=== PATIENT | male | born 1935 | race Caucasian/White ===

== ENCOUNTER 2016-12-19 12:54 | Emergency (ER) | payer BC ==
[2016-12-19 13:07] VITALS: TEMP 99.7; BMI 28.1
[2016-12-19] MEDS ORDERED: ONDANSETRON 4 MG/2 ML VIAL IVPUSH ONE ×2 (13:28→19:16)
[2016-12-19] MEDS ORDERED: SODIUM CHLORIDE 1,000 ML IV STA (13:28)
[2016-12-19] MEDS ORDERED: morphine CARPU-JECT 4 MG/1 ML DISP.SYRIN IVPUSH ONE ×2 (13:28→14:44)
[2016-12-19] MEDS ORDERED: morphine CARPU-JECT 4 MG/1 ML DISP.SYRIN ONE ×2 (13:45→14:47)
[2016-12-19] MEDS ORDERED: ONDANSETRON 4 MG/2 ML VIAL ONE ×2 (13:45→20:06)
[2016-12-19 13:58] LABS: BASOPHIL 0.2 % (0-2.0); EOSINOPHIL 0.1 % (0-4.5); MCH 28.4 pg (25.7-33.7); MCHC 33.4 g/dl (32.0-35.9); MEAN CELL VOLUME 85.2 fl (80-96); MEAN PLT VOLUME 6.9 fl (7.5-11.1); NEUTROPHILS 87.7 % (42.8-82.8); PLATELET COUNT 202 K/MM3 (134-434); RDW 13.7 % (11.9-15.9); WHITE BLOOD COUNT 12.9 K/mm3 (4.0-10.0)
[2016-12-19 14:20] LABS: ALBUMIN 3.8 g/dl (3.4-5.0); BILIRUBIN,TOTAL 1.7 mg/dL (0.2-1.0); CALCIUM 9.1 mg/dL (8.5-10.1); COCKROFT - GAULT 46.11; CREATININE 1.5 mg/dL (0.7-1.3); TOT PROT 6.9 g/dl (6.4-8.2)
--- NOTE | 2016-12-19 14:44 | PDOC ---
History of Present Illness - General History Source: Patient Exam Limitations: No Limitations - History of Present Illness Initial Comments: 12/19/16 14:48 The patient is a 81 year old male, with a significant past medical history of HTN (metropolol) and HLD (Lisinopril), who presents to the emergency department with abdominal pain, nausea and vomit for the past 3 days. He describes his abdominal pain as localized in the lower abdominal region, which he describes as a pressure like sensation, without radiation. He notes that the pain is intermittent in nature. He denies any modifying factors. He states that he has been passing mild air and has been burping much. He reports that his last bowel movement was dark and loose. 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 He notes that he developed a low heart rate 10 years ago when he had a colonoscopy. The patient denies chest pain, shortness of breath, headache and dizziness. Denies fever, chills, diarrhea and constipation. Denies dysuria, frequency, urgency and hematuria. Allergies: None Past surgical history: None reported Social history: No alcohol, tobacco or drug use reported GI: Dr. No <Rik Novoa - Last Filed: 12/19/16 14:47> - General History Source: Patient Exam Limitations: No Limitations <Angelina Sanchez - Last Filed: 12/20/16 08:19> - General Chief Complaint: Pain Stated Complaint: ABDOMINAL PAIN Time Seen by Provider: 12/19/16 12:59 Past History <Rik Novoa - Last Filed: 12/19/16 14:47> - Past Medical History Cardiac Disorders: Yes (tachycardia) Hypercholesterolemia: Yes - Psycho/Social/Smoking Cessation Hx Anxiety: No Suicidal Ideation: No Smoking History: Former smoker Have you smoked in the past 12 months: No Information on smoking cessation initiated: No Hx Alcohol Use: No Drug/Substance Use Hx: No Substance Use Type: None <Angelina Sanchez - Last Filed: 12/20/16 08:19> - Past Medical History Allergies/Adverse Reactions: Allergies Allergy/AdvReac Type Severity Reaction Status Date / Time No Known Allergies Allergy Verified 12/19/16 12:58 Home Medications: Ambulatory Orders Ketorolac Tromethamine [Toradol] 10 mg PO Q6H PRN #8 tablet MDD 4 12/19/16 Metoprolol Tartrate [Lopressor -] 0 mg PO HS 12/19/16 Nitrofurantoin Monohyd/M-Cryst [Macrobid -] 100 mg PO BID #14 capsule 12/19/16 Ondansetron [Zofran Odt -] 4 mg SL TID PRN #6 od.tablet 12/19/16 Oxycodone HCl/Acetaminophen [Percocet 5-325 mg Tablet] 1 tab PO Q6H PRN #4 tablet MDD 4 12/19/16 Pravastatin Sodium [Pravachol (Nf)] 20 mg PO HS 12/19/16 Tamsulosin HCl [Flomax] 0.4 mg PO DAILY #7 capsule 12/19/16 Review of Systems - Review of Systems Able to Perform ROS?: Yes Comments:: 12/19/16 14:48 GENERAL/CONSTITUTIONAL: No fever or chills. No weakness. HEAD, EYES, EARS, NOSE AND THROAT: No change in vision. No ear pain or discharge. No sore throat. CARDIOVASCULAR: No chest pain or shortness of breath RESPIRATORY: No cough, wheezing, or hemoptysis. GASTROINTESTINAL: (+) Abdominal pain, nausea, vomiting. No diarrhea or constipation. GENITOURINARY: No dysuria, frequency, or change in urination. MUSCULOSKELETAL: No joint or muscle swelling or pain. No neck or back pain. SKIN: No rash NEUROLOGIC: No headache, vertigo, loss of consciousness, or change in strength/ sensation. ENDOCRINE: No increased thirst. No abnormal weight change HEMATOLOGIC/LYMPHATIC: No anemia, easy bleeding, or history of blood clots. ALLERGIC/IMMUNOLOGIC: No hives or skin allergy. <Rik Novoa - Last Filed: 12/19/16 14:47> *Physical Exam - Vital Signs Last Vital Signs Temp Pulse Resp BP Pulse Ox 99.7 F H 77 20 142/76 96 12/19/16 13:04 12/19/16 13:04 12/19/16 13:04 12/19/16 13:04 12/19/16 13:04 - Physical Exam Comments: 12/19/16 14:47 GENERAL: Awake, alert, and fully oriented, in no acute distress HEAD: No signs of trauma, normocephalic, atraumatic EYES: PERRLA, EOMI, sclera anicteric, conjunctiva clear ENT: Auricles normal inspection, hearing grossly normal, nares patent, oropharynx clear without exudates. Moist mucosa NECK: Normal ROM, supple, no lymphadenopathy, JVD, or masses LUNGS: No distress, speaks full sentences, clear to auscultation bilaterally HEART: Regular rate and rhythm, normal S1 and S2, no murmurs, rubs or gallops, peripheral pulses normal and equal bilaterally. ABDOMEN: Soft, nontender, normoactive bowel sounds. No guarding, no rebound. No masses EXTREMITIES: Normal inspection, Normal range of motion, no edema. No clubbing or cyanosis. NEUROLOGICAL: Cranial nerves II through XII grossly intact. Normal speech, normal gait, no focal sensorimotor deficits SKIN: Warm, Dry, normal turgor, no rashes or lesions noted. <Rik Novoa - Last Filed: 12/19/16 14:47> - Vital Signs Last Vital Signs Temp Pulse Resp BP Pulse Ox 99.7 F H 77 20 142/76 96 12/19/16 13:04 12/19/16 13:04 12/19/16 13:04 12/19/16 13:04 12/19/16 13:04 <Angelina Sanchez - Last Filed: 12/20/16 08:19> ED Treatment Course - LABORATORY CBC & Chemistry Diagram: 12/19/16 13:34 12/19/16 13:34 - ADDITIONAL ORDERS Additional order review: Laboratory Results 12/19/16 12/19/16 13:34 13:34 Sodium 141 Potassium 4.2 Chloride 103 Carbon Dioxide 27 Anion Gap 11 BUN 16 Creatinine 1.5 H Creat Clearance w eGFR 45.14 Random Glucose 120 H Calcium 9.1 Total Bilirubin 1.7 H AST 14 L ALT 21 Alkaline Phosphatase 70 Total Protein 6.9 Albumin 3.8 Total Amylase 39 Lipase 58 L Stool Occult Blood Negative 12/19/16 13:34 RBC 4.76 MCV 85.2 MCHC 33.4 RDW 13.7 MPV 6.9 L Neutrophils % 87.7 H Lymphocytes % 6.5 L Monocytes % 5.5 Eosinophils % 0.1 Basophils % 0.2 - Medications Given in the ED: ED Medications Discontinued Medications Generic Name Dose Route Start Last Admin Trade Name Freq PRN Reason Stop Dose Admin Morphine Sulfate 4 mg 12/19/16 13:28 12/19/16 13:54 Morphine Injection - IVPUSH 12/19/16 13:29 4 mg ONCE ONE Administration Ondansetron HCl 4 mg 12/19/16 13:28 12/19/16 13:54 Zofran Injection IVPUSH 12/19/16 13:29 4 mg ONCE ONE Administration <Rik Novoa - Last Filed: 12/19/16 14:47> - LABORATORY CBC & Chemistry Diagram: 12/19/16 13:34 12/19/16 13:34 - ADDITIONAL ORDERS Additional order review: Laboratory Results 12/19/16 12/19/16 13:34 13:34 Sodium 141 Potassium 4.2 Chloride 103 Carbon Dioxide 27 Anion Gap 11 BUN 16 Creatinine 1.5 H Creat Clearance w eGFR 45.14 Random Glucose 120 H Calcium 9.1 Total Bilirubin 1.7 H AST 14 L ALT 21 Alkaline Phosphatase 70 Total Protein 6.9 Albumin 3.8 Total Amylase 39 Lipase 58 L Stool Occult Blood Negative 12/19/16 13:34 RBC 4.76 MCV 85.2 MCHC 33.4 RDW 13.7 MPV 6.9 L Neutrophils % 87.7 H Lymphocytes % 6.5 L Monocytes % 5.5 Eosinophils % 0.1 Basophils % 0.2 - RADIOLOGY Radiology Studies Ordered: Category Date Time Status ABDOMEN & PELVIS CT WITH CONTR [CT] Stat CT Scan 12/19/16 13:25 Ordered - Medications Given in the ED: ED Medications Discontinued Medications Generic Name Dose Route Start Last Admin Trade Name Freq PRN Reason Stop Dose Admin Morphine Sulfate 4 mg 12/19/16 13:28 12/19/16 13:54 Morphine Injection - IVPUSH 12/19/16 13:29 4 mg ONCE ONE Administration Ondansetron HCl 4 mg 12/19/16 13:28 12/19/16 13:54 Zofran Injection IVPUSH 12/19/16 13:29 4 mg ONCE ONE Administration <Angelina Sanchez - Last Filed: 12/20/16 08:19> Medical Decision Making - Medical Decision Making 12/19/16 14:44 A portion of this note was documented by scribe services under my direction. I have reviewed the details of the note, within reason, and agree with the documentation with the following case summary and management plan written by me. Nursing documentation reviewed and incorporated into medical decision making This patient is a 81-year-old male with a history of diabetes and hypertension who presents emergency department with a complaint of right lower quadrant pain for approximately 3 days. Patient states his symptoms have been associated with nausea, vomiting, inability to tolerate by mouth. Yesterday in the middle of the day he had a large dark bowel movement. Since then he's had small amounts of flatus. He has noted no fevers, no chills. No abdominal surgery DD: Appendicitis, colitis, enteritis, Kidney stone, gastroenteritis, obstruction , gastritis, diverticulitis 12/19/16 15:28 Laboratory Tests 12/19/16 12/19/16 13:34 13:34 WBC 12.9 H Hgb 13.5 Hct 40.6 Plt Count 202 Sodium 141 Potassium 4.2 Chloride 103 Carbon Dioxide 27 BUN 16 Creatinine 1.5 H Random Glucose 120 H Total Bilirubin 1.7 H 12/19/16 16:[address] of the abdomen and pelvis Pt signed out to Dr Asencio <Angelina Sanchez - Last Filed: 12/20/16 08:19> *DC/Admit/Observation/Transfer - Attestations Scribe Attestion: 12/19/16 14:47 Documentation prepared by Rik Novoa, acting as medical director occupational health for Angelina Sanchez MD <Rik Novoa - Last Filed: 12/19/16 14:47> <Angelina Sanchez - Last Filed: 12/20/16 08:19> Diagnosis at time of Disposition: Urinary tract infectious disease - Discharge Dispostion Disposition: HOME - Prescriptions Prescriptions: Tamsulosin HCl [Flomax] 0.4 mg PO DAILY #7 capsule Nitrofurantoin Monohyd/M-Cryst [Macrobid -] 100 mg PO BID #14 capsule Oxycodone HCl/Acetaminophen [Percocet 5-325 mg Tablet] 1 tab PO Q6H PRN #4 tablet MDD 4 PRN Reason: Severe Pain Ketorolac Tromethamine [Toradol] 10 mg PO Q6H PRN #8 tablet MDD 4 PRN Reason: Pain Ondansetron [Zofran Odt -] 4 mg SL TID PRN #6 od.tablet PRN Reason: Nausea And/Or Vomiting - Referrals Referrals: Froylan Santo MD [Primary Care Provider] -
[2016-12-19 16:06] LABS: URINE APPEARANCE SLCLOUDY; URINE BILIRUBIN NEGATIVE (NEGATIVE); URINE COLOR YELLOW; URINE GLUCOSE (UA) NEGATIVE (NEGATIVE); URINE KETONE TRACE (NEGATIVE); URINE LEUK ESTERASE NEGATIVE (NEGATIVE); URINE NITRITE NEGATIVE (NEGATIVE); URINE UROBILINOGEN NEGATIVE E.U./dl (0.2-1.0)
[2016-12-19 16:09] LABS: URINE BLOOD 3+ (NEGATIVE); URINE PROTEIN 1+ (NEGATIVE)
[2016-12-19 16:10] LABS: URINE MUCUS RARE; URINE RBC 289 /hpf (0-3); URINE WBC 18 /hpf (3-5)
[2016-12-19 18:12] VITALS: BP 119/74; PULSE 81
[2016-12-19] MEDS ORDERED: TAMSULOSIN HCL 0.4 MG CAP.ER.24H (FP) PO ONE (18:40)
[2016-12-19] MEDS ORDERED: NITROFURANTOIN MACROCRYSTAL 50 MG CAPSULE (FP) PO SCH (18:45)
[2016-12-19] MEDS ORDERED: KETOROLAC TROMETHAMINE 30 MG/1 ML VIAL IVPUSH ONE (19:15)
[2016-12-19] MEDS ORDERED: KETOROLAC TROMETHAMINE 30 MG/1 ML VIAL ONE (19:18)
[2016-12-19] MEDS ORDERED: TAMSULOSIN HCL 0.4 MG CAP.ER.24H (FP) ONE (19:18)
[2016-12-19] MEDS ORDERED: NITROFURANTOIN MACROCRYSTAL 50 MG CAPSULE (FP) ONE (19:18)
== END 2016-12-19 20:23 | disposition home or self-care (01) ==
LOC: SUPCPDRO 12:54 → JER 12:54
PROC: 3E0333Z Introduction of Anti-inflammatory into Peripheral Vein, Percutaneous Approach (ICD-10-PCS; principal; 2016-12-19)
PROC: 3E033NZ Introduction of Analgesics, Hypnotics, Sedatives into Peripheral Vein, Percutaneous Approach (ICD-10-PCS; 2016-12-19)
PROC: 3E033GC Introduction of Other Therapeutic Substance into Peripheral Vein, Percutaneous Approach (ICD-10-PCS; 2016-12-19)
PROC: 3E0337Z Introduction of Electrolytic and Water Balance Substance into Peripheral Vein, Percutaneous Approach (ICD-10-PCS; 2016-12-19)
DX: N39.0 Urinary tract infection, site not specified (principal); I10 Essential (primary) hypertension; E78.5 Hyperlipidemia, unspecified; Z87.891 Personal history of nicotine dependence
CPT/HCPCS: 36415; 74176-TC; 80053; 81003; 81015; 82150; 82272; 83690; 85025; 87086; 96361; 96374; 96375; 96376; 99283-25; Q9967

== ENCOUNTER 2019-02-25 02:36 | Emergency (ER) | payer BC ==
--- NOTE | 2019-02-25 02:57 | PDOC ---
Attending Attestation - Resident Resident Name: Savi Benitez - ED Attending Attestation I have performed the following: I have examined & evaluated the patient, The case was reviewed & discussed with the resident, I agree w/resident's findings & plan - HPI HPI: 02/25/19 06:13 83-year-old male complaining of left lower quadrant pain, at its worst 8-9 out of 10 in intensity. There is no associated fever. - Physicial Exam PE: 02/25/19 06:14 GENERAL: Awake, in no acute distress HEAD: No signs of trauma EYES: ENT:clear without exudates. Moist mucosa NECK: Normal ROM, LUNGS:. Normal work of breathing. HEART: Regular rate and rhythm, ABDOMEN: Soft, nondistended , CHEST WALL: EXTREMITIES:. No erythema, or tenderness NEUROLOGICAL: Alert, SKIN: Warm, Dry - Medical Decision Making 02/25/19 06:16 83-year-old male with left lower quadrant pain and history of kidney stones Plan for UA, labs and CT scan abdomen and pelvis Patient currently pain free after IV Tylenol on reevaluation at 6 AM
[2019-02-25] MEDS ORDERED: ACETAMINOPHEN 1000 MG/100 ML VIAL (NON FORMULARY) IVPB ONE (03:11)
[2019-02-25] MEDS ORDERED: LACTATED RINGERS SOLUTION 1,000 ML/1,000 ML INFUS.BAG IV STA (03:11)
[2019-02-25] MEDS ORDERED: ONDANSETRON 4 MG/2 ML VIAL IVPUSH ONE (03:12)
[2019-02-25] MEDS ORDERED: KETOROLAC TROMETHAMINE 15 MG/ML VIAL IVPUSH ONE (03:14)
--- NOTE | 2019-02-25 03:18 | PDOC ---
History of Present Illness - General Chief Complaint: Pain Stated Complaint: ABDOMINAL PAIN Time Seen by Provider: 02/25/19 02:50 History Source: Patient Exam Limitations: No Limitations - History of Present Illness Initial Comments: 83 yo M PMH HTN, HLD, hx kidney stones, p/w LLQ pain. Said it started around 1600 last night acutely, 10/10 pressure pain. Tried to chug water and ended up throwing up 3 times. Tried Tylenol but was not effective. Denies CP, SOB, wheezing, REICH, dizziness, constipation/diarrhea. 02/25/19 03:13 Past History - Past Medical History Allergies/Adverse Reactions: Allergies Allergy/AdvReac Type Severity Reaction Status Date / Time No Known Allergies Allergy Verified 12/19/16 12:58 Home Medications: Ambulatory Orders Ketorolac Tromethamine [Toradol] 10 mg PO Q6H PRN #8 tablet MDD 4 12/19/16 Metoprolol Tartrate [Lopressor -] 0 mg PO HS 12/19/16 Nitrofurantoin Monohyd/M-Cryst [Macrobid -] 100 mg PO BID #14 capsule 12/19/16 Oxycodone HCl/Acetaminophen [Percocet 5-325 mg Tablet] 1 tab PO Q6H PRN #4 tablet MDD 4 12/19/16 Pravastatin Sodium [Pravachol (Nf)] 20 mg PO HS 12/19/16 Ondansetron [Zofran Odt -] 4 mg SL TID PRN #6 od.tablet 02/25/19 Tamsulosin HCl [Flomax -] 0.4 mg PO DAILY #7 capsule 02/25/19 Cardiac Disorders: Yes (tachycardia) COPD: No Hypercholesterolemia: Yes - Suicide/Smoking/Psychosocial Hx Smoking History: Never smoked Have you smoked in the past 12 months: No Information on smoking cessation initiated: No Hx Alcohol Use: No Drug/Substance Use Hx: No Substance Use Type: None Review of Systems - Review of Systems Able to Perform ROS?: Yes Constitutional: No: Chills, Fever HEENTM: No: Recent change in vision, Throat Swelling, Difficulty Swallowing Respiratory: No: Cough, Shortness of Breath Cardiac (ROS): No: Chest Pain, Irregular Heart Rate, Lightheadedness, Palpitations ABD/GI: No: Constipated, Diarrhea, Nausea, Vomiting : No: Burning, Dysuria, Discharge, Frequency, Flank Pain Musculoskeletal: No: Back Pain Neurological: No: Headache, Numbness, Tingling *Physical Exam - Vital Signs Last Vital Signs Temp Pulse Resp BP Pulse Ox 98.5 F 93 H 18 159/82 96 02/25/19 02:53 02/25/19 02:53 02/25/19 02:53 02/25/19 02:53 02/25/19 02:53 - Physical Exam Comments: Gen: NAD, appropriately dressed HEENT: atraumatic, normocephalic Neck: trachea midline, non-tender, supple Neuro: CN II-XII intact, 5/5 strength b/l CV: regular rate and rhythm, no murmurs Pulm: CTA b/l Abd: hard, non-distended, non-tender Extr: no edema Skin: warm, dry, no bruising MSK: normal ROM, no muscle wasting 02/25/19 03:20 ED Treatment Course - LABORATORY CBC & Chemistry Diagram: 02/25/19 03:31 02/25/19 03:31 Medical Decision Making - Medical Decision Making Kidney stone vs diverticulitis. CBC CMP UA/UC lipase 02/25/19 03:25 WBC 13.3, UA w/o blood, 1+ protein 02/25/19 04:16 Patient reassessed, sleeping comfortably. Pain now 0/10 02/25/19 04:[address] with 3mm kidney stone. 02/25/19 06:52 *DC/Admit/Observation/Transfer Diagnosis at time of Disposition: Kidney stone on left side - Discharge Dispostion Disposition: HOME Condition at time of disposition: Improved Decision to Admit order: No - Prescriptions Prescriptions: Ondansetron [Zofran Odt -] 4 mg SL TID PRN #6 od.tablet PRN Reason: Nausea And/Or Vomiting Tamsulosin HCl [Flomax -] 0.4 mg PO DAILY #7 capsule - Referrals Referrals: Everett Laurent MD [Staff Physician] - - Patient Instructions Printed Discharge Instructions: DI for Kidney Stones Additional Instructions: You were found to have a 3mm kidney stone. Please take your Flomax to help you urinate out your stone, Zofran for nausea, and Motrin/Tylenol for pain. Follow up with Dr. Laurent for further outpatient management. - Post Discharge Activity
[2019-02-25 03:24] VITALS: BP 159/82; PULSE 93; TEMP 98.5; BMI 28.8
[2019-02-25 03:41] LABS: BASO % 0.1 % (0-2.0); EOS % 0.1 % (0-4.5); HEMATOCRIT 39.5 % (35.4-49); HEMOGLOBIN 13.4 GM/dL (11.7-16.9); LYMPH % 6.3 % (8-40); MCH 29.2 pg (25.7-33.7); MCHC 33.9 g/dl (32.0-35.9); MEAN CELL VOLUME 86.3 fl (80-96); MEAN PLT VOLUME 7.3 fl (7.5-11.1); MONO % 5.3 % (3.8-10.2); NEUT % 88.2 % (42.8-82.8); PLATELET COUNT 170 K/MM3 (134-434); RBC 4.58 M/mm3 (4.00-5.60); RDW 14.1 % (11.9-15.9); WHITE BLOOD COUNT 13.3 K/mm3 (4.0-10.0)
[2019-02-25] MEDS ORDERED: ONDANSETRON 4 MG/2 ML VIAL ONE (03:45)
[2019-02-25] MEDS ORDERED: ACETAMINOPHEN INJECTION 100 ML IVPB ONE (03:45)
[2019-02-25] MEDS ORDERED: KETOROLAC TROMETHAMINE 15 MG/ML VIAL ONE (03:45)
[2019-02-25 04:01] LABS: ALBUMIN 3.7 g/dl (3.4-5.0); BILIRUBIN,TOTAL 1.8 mg/dL (0.2-1); CALCIUM 8.3 mg/dL (8.5-10.1); CREATININE 1.3 mg/dL (0.55-1.3); POTASSIUM 4.3 mmol/L (3.5-5.1); TOT PROT 6.5 g/dl (6.4-8.2)
[2019-02-25 04:13] LABS: EPI CELLS 2.6 /HPF (0-5/HPF); HYALINE CASTS 4 /lpf (0-8); URINE APPEARANCE CLEAR; URINE BACTERIA 2.5 /hpf (NEGATIVE); URINE BILIRUBIN NEGATIVE (NEGATIVE); URINE COLOR YELLOW; URINE GLUCOSE (UA) NEGATIVE (NEGATIVE); URINE KETONE TRACE (NEGATIVE); URINE LEUK ESTERASE NEGATIVE (NEGATIVE); URINE NITRITE NEGATIVE (NEGATIVE); URINE PROTEIN 1+ (NEGATIVE); URINE RBC 2 /hpf (0-4); URINE UROBILINOGEN 0.2 mg/dL (0.2-1.0); URINE WBC 2 /hpf (0-5)
[2019-02-25 04:17] LABS: INR 1.05 (0.83-1.09); PROTHROMBIN TIME (PATIENT) 12.4 SEC (9.7-13.0)
== END 2019-02-25 07:59 | disposition home or self-care (01) ==
LOC: JER 02:36
PROC: 3E0333Z Introduction of Anti-inflammatory into Peripheral Vein, Percutaneous Approach (ICD-10-PCS; principal; 2019-02-25)
PROC: 3E033NZ Introduction of Analgesics, Hypnotics, Sedatives into Peripheral Vein, Percutaneous Approach (ICD-10-PCS; 2019-02-25)
PROC: 3E033GC Introduction of Other Therapeutic Substance into Peripheral Vein, Percutaneous Approach (ICD-10-PCS; 2019-02-25)
DX: N20.0 Calculus of kidney (principal); Z87.442 Personal history of urinary calculi; I10 Essential (primary) hypertension; E78.5 Hyperlipidemia, unspecified
CPT/HCPCS: 36415; 74176-TC; 80053; 81003; 83690; 85025; 85610; 85730; 87077; 87086; 96374; 96375; 99283-25; J0131